=== PATIENT | female | born 1985 | race African-American/Black ===

== ENCOUNTER 2018-01-12 17:26 | Emergency (ER) | payer OTHER ==
[~2018-01-12] VITALS: Ht 160 cm; Wt 99.8 kg
[2018-01-12] MEDS ORDERED: AMOXICILLIN875 MG PO (17:45)
[2018-01-12] MEDS ORDERED: CIPROFLOXIN HC2.5 M1 OTIC (17:45)
[2018-01-12 17:51] VITALS: BP 128/87
== END 2018-01-12 17:51 | disposition home or self-care (01) ==
LOC: M.ERS 17:26
DX: H66.92 Otitis media, unspecified, left ear (principal); H60.92 Unspecified otitis externa, left ear

== ENCOUNTER 2021-08-08 21:30 | Emergency (ER) | payer BC ==
[~2021-08-08] VITALS: Ht 160 cm; Wt 95.7 kg
[~2021-08-08 21:30] MED LIST: AMOXICILLIN875 MG PO; CIPROFLOXIN HC2.5 M1 OTIC
[2021-08-08 23:43] VITALS: BP 148/100
== END 2021-08-08 23:43 | disposition left against medical advice (07) ==
LOC: M.ERS 21:30
DX: M54.2 Cervicalgia (principal); Z53.21 Procedure and treatment not carried out due to patient leaving prior to being seen by health care provider